=== PATIENT | female | born 1985 | race Caucasian/White ===

== ENCOUNTER 2021-10-29 14:16 | Outpatient (REF) | payer OTHER, SELFPAY | END 2021-10-29 14:17 | disposition home or self-care (01) | LOC: HO.LAB 14:16 | PROVIDERS: PCP Internal Medicine; Visit Provider Internal Medicine | DX: Z20.822 Contact with and (suspected) exposure to COVID-19 (principal) | CPT/HCPCS: C9803; U0003; U0005 ==

== ENCOUNTER 2024-09-24 10:26 | Emergency (ER) | payer OTHER, SELFPAY ==
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
[2024-09-24 10:33] VITALS: BP 128/78; PULSE 80; O2SAT 99
[2024-09-24 10:59] VITALS: BP 112/55; PULSE 85; RESP 20; TEMP 36.6; O2SAT 96; BMI 31.5
[2024-09-24 11:02] VITALS: BP 112/55; PULSE 85; RESP 20; TEMP 36.6; O2SAT 96
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
[2024-09-24] MEDS: Cyclobenzaprine HCl 5 MG TABLET PO (12:05)
--- NOTE | 2024-09-24 12:05 | PC.NURSE ---
Pt. medicated per JAN. Declines Lidocaine patch at this time.
[2024-09-24] MEDS: Ketorolac Tromethamine 30 MG/ML VIAL IM (12:06)
--- NOTE | 2024-09-24 12:37 | PC.NURSE ---
Pt.'s scans are back and are negative. Per Garfield Alcantar MD, OK for this RN to remove pt.'s c-collar.
[2024-09-24 13:53] VITALS: BP 151/92; PULSE 85; RESP 20; TEMP 36.8; O2SAT 100
== END 2024-09-24 13:53 | disposition home or self-care (01) ==
PROVIDERS: Emergency Provider Emergency Medicine
DX: S39.012A Strain of muscle, fascia and tendon of lower back, initial encounter (principal); R51.9 Headache, unspecified; M54.2 Cervicalgia; V49.49XA Driver injured in collision with other motor vehicles in traffic accident, initial encounter; Y93.89 Activity, other specified; Y92.488 Other paved roadways as the place of occurrence of the external cause; Y99.8 Other external cause status
CPT/HCPCS: 70450; 72100; 72125; 96372; 99284; J1885

== ENCOUNTER 2025-09-13 14:04 | Outpatient (AMB) | payer OTHER, SELFPAY ==
[2025-09-13 14:09] VITALS: BP 100/70; PULSE 108; RESP 16; TEMP 36.5; O2SAT 97; BMI 35.5
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
--- OUTSIDE RECORDS SUMMARY | 2025-09-13 14:53 | XMS_ITS | Clinical Summary ---
Author Organization [facility] it Address [address] [place] [address] Care Team Providers Care Child Protective Investigator Name Role Phone Yari Ramirez MD Primary Care Provider [phone] Surgical History Surgery Date Site/Laterality Comments CERVICAL BIOPSY W/ LOOP ELECTRODE EXCISION 1999 PROCEDURE: CERVIAL LEEP CONE BIOPSY [facility] PATHOLOGY EX ESOPHAGOGASTRODUODENOSCOPY 06/16/16 PROCEDURE: MS ESOPHAGOGASTRODUODENOSCOPY TRANSORAL DIAGNOSTIC; COMMENT: normal, with normal gastric and duodenal bxys; no H. pylori OTHER SURGICAL HISTORY 07/23/2016 PROCEDURE: HYSTEROSCOPY, DIAGNOSTIC OTHER SURGICAL HISTORY 01/28/20 PROCEDURE: HISTORICAL TOTAL HYSTERECTOMY W/O BSO Medical History Medical History Date Comments Unspecified asthma(493.90) DX:Un specified asthma(493.90) Other specified personal his tory presenting hazards to health(V15.89) DX:Other specifie d personal history presenting hazards to health(V15.89) Hemorrhoids DX:Hemorrhoids Muller's palsy DX:Muller's palsy; COMMENT: age 17, left side Family History Medical History Relation Name Comments Other: lupus Maternal Grandmother Other: parents have been well Mother Other: brain tumor Other 1 cousin, d eceased Other: cystic fibrosis Other 2 cousi n Other: hydradenitis Other 3 sister Crohn's disease Sister 1 Relation Name Status Comments Daughter Angeliece Alive Father Alive Maternal Grandmother Mother Alive Other 1 Other 2 Other 3 Sister 1 Sister 2 Alive Sister 3 Alive Son Jag Alive Social History Tobacco Use Types Packs/Day Years Used Date Smoking Tobacco: Every Day Cigarettes Last attempted to quit: 08/14/2005 Smokeless Tobacco: Never Alcohol Use Standard Drinks/Week Comments Yes 0 (1 standard drink = 0.6 oz pur e alcohol) Comments Unknown Sex and Gender Information Value Date Recorded Sex Assigned at Not on file Legal Sex Female 9:43 AM EST Gender Identity Not on file Sexual Orientation Not on file Obstetrics History Last Filed Vital Signs Vital Sign Reading Time Taken Comments Blood Pressure 109/74 08/14/2024 10:36 AM EDT Pulse 72 08/14/2024 10:36 AM EDT Temperature - - Respiratory Rate - - Oxygen Saturation - - Inhaled Oxygen Concentration - - Weight 87.5 kg (193 lb) 08/14/2024 10:36 AM EDT Height 162.6 cm (5' 4 ) 08/14/2024 10:36 AM EDT Body Mass Index 33.13 08/14/2024 10:36 AM EDT Plan of Treatment Health Maintenance Due Date Last Done Comments Hepatitis B Vaccines (1 of 3 - 19+ 3-dose series) 2005 Pneumococcal Vaccine: Pediatrics (0 to 5 Years) and At-Risk Patients (6 to 49 Years) (1 of 2 - PCV) 2005 DTaP,Tdap,and Td Vaccines (2 - Td or Tdap) 08/27/2020 08/27/2010 Hepatitis C Screening 10/17/2022 Social Influencers of Health Screening 10/17/2022 Depression Screening 11/14/2024 COVID-19 Vaccine ( - 2023-2 5 season) 2025 Influenza Vaccine (#1) 2025 RSV Immunization Adult Patients (1 - 1-dose 75+ series) 2061 HPV Vaccines Completed 08/15/2008, 04/01/2008, 02/08/2008 HIV Screening Completed 08/14/2024 HIB Vaccines Aged Out No longer eligi ble based on patient's age to complete this topic Hepatitis A Vaccines Aged Out No long er eligible based on patient's age to complete this topic IPV Vaccines Aged Out No longer eligi ble based on patient's age to complete this topic MMR Vaccines Aged Out No longer eligi ble based on patient's age to complete this topic Meningococcal ACWY Vaccine Aged Out N o longer eligible based on patient's age to complete this topic Meningococcal B Vaccine Aged Out No l onger eligible based on patient's age to complete this topic RSV Immunization Patients Under 20 months Aged Out No longer eligible b ased on patient's age to complete this topic Varicella Vaccines Aged Out No longer eligible based on patient's age to complete this topic Care Teams Child Protective Investigator Relationship Specialty Start Date End Date Yari Ramirez MD [address] [place] [address] PCP - General Internal Medicine 08/14/11
--- OUTSIDE RECORDS SUMMARY | 2025-09-13 14:53 | XMS_ITS | Data Portability ---
Author Organization [facility], [address] Address [address] [place] [address] Assessment No assessment recorded. Plan of Treatment Reminders Order Date Submit Date Provider Last Modified By Organization Details Last Modified Time Details Appointments None recorded . Lab None recorded . Referral orthoped ic surgeon referral 2022 023 [facility] (Pe[facility] Goss), [address] [place], [address], 3 09:30:22 Procedures None recorded . Surgeries None recorded . Imaging None recorded . Medication Orders cephalex in 500 mg capsule 2022 023 [id number], [address] [place], [address], 4 08:13:15 Patient TargetsNo targets recorded. Patient Instructions Encounter Date Encounter Id Patient Instructions Last Modified By Organization Details Last Modified Time 05/23/2023 [id number] ganglion cyst education [email or web address] Not available 05/23/2023 09:15:45 ganglions: care instructions [email or web address] Not available 05/23/2023 09:15:45 cellulitis: care instructions [email or web address] Not available 05/23/2023 09:15:45 Wear the wrist splint as instructed. Take the antibiotic as prescribed. Take an over the counter probiotic daily while taking the antibiotic. See printed instructions. A referral to orthopedics has been made for you, call for an appointment as soon as possible. It is unclear if the redness of the back of your left hand is due to inflammation or infection. You are being treated with an antibiotic for possible infection. Over the counter tylenol may be taken per package instructions for pain. Since you have a history of ulcers you should avoid ibuprofen and related medication. Return to [email or web address] in 2 days for re-evaluation. Seek Emergency Medical evaluation for any worsening symptoms, particularly for increased pain, swelling, redness, fever, chills. [email or web address] Not available 05/23/2023 09:19:24 Reason for Referral Orthopedic Surgeon Referral for Ganglion cyst of left wrist Painful left wrist ganglion cyst Referring Physician: Senait Wilkins, Urgent Care, Encounter Date: 05/23/2023 Problems No Known Problems Procedures Surgical History Date Name Laterality Status Provider Name and Address Organization Details Recorded Time hysterectomy completed LESVIA ULI PA - [facility] 05/23/2023 08:48:06 tonsillectomy completed L[facility]IA LUI [facility] - [facility] 05/23/2023 08:48:25 Imaging Results None recorded. Procedure Notes None recorded. Medical Equipment None Reported. Allergies No known drug allergies Medications Name Sig Start Date Stop Date Status Note LastModified by Organization Details LastModified Time cephalexin 500 mg capsule Take 1 capsule 3 times a day by oral route for 7 days. 02/28 completed Not Available Not Available Not Available Vitals Date Recorded Body height Body mass index (BMI) Body weight Oxygen saturation Oxygen saturation in Arterial blood by Pulse oximetry Heart rate Respiratory rate Body temperature Systolic And Diastolic Provider Name and Address Organization Details Last Updated DateTime 4 162.56 cm 32.6 kg/m2 83453.5 5 g 99 % 99 % 85 /min 18 /min 98 [degF] 117/84 mm[Hg] Luba Rojas PA - [email or web address] 4 08:17:33 Date Recorded Body height Body mass index (BMI) Body weight Oxygen saturation Oxygen saturation in Arterial blood by Pulse oximetry Heart rate Respiratory rate Body temperature Systolic And Diastolic Provider Name and Address Organization Details Last Updated DateTime 3 162.56 cm 32.6 kg/m2 54270.5 5 g 97 % 97 % 85 /min 16 /min 97.6 [degF] 115/81 mm[Hg] LESVIA LUI PA - [facility] 3 08:50:00 Social History Question Answer Notes LastModified by Organizat ion Details LastModified Time Tobacco Smoking Status Current Every Day Smoker [facility] Ness - [facility] 02/29/2024 08:16:04 How Much Tobacco Do You Smoke? 0.5 PPD Information not available 02/29/2024 Sex: Unknown Functional Status Question Answer Note LastModified by Organizat ion Details LastModified Time How many times per week do you consume alcohol? 1-2 times per week [email or web address] Information not available 05/23/2023 Do you use any illicit or recreational drugs? No Information not available 05/23/2023 Do you or have you ever used any other forms of tobacco or nicotine? No Information not available 02/29/2024 What is your level of alcohol consumption? Occasional [email or web address] Information not available 05/23/2023 Mental Status None recorded. Family History Nothing Reported. Medical History Condition Response Gout N Cancer, liver N Thyroid disorder N Hyperthyroidism N Rheumatoid arthritis N GI bleeding N Irritable bowel syndrome N Depression N COPD N Tinnitus, unspecified ear N Pneumonia N Cancer, uterus N Mental disorder, NOS N Headaches/Migraines N Insomia N Alzheimer's disease N Anxiety Disorder N Obesity N Arthritis N Cancer N Stroke N Alcohol abuse N Liver disease N Cancer, bladder N Allergy Food/Medication N Peripheral artery disease N Oxygen dependence N Fibromyalgia N Atrial fibrillation N Tinnitus, right ear N Kidney Disease N Deep vein thrombosis DVT leg N Migraine N Disorder of circulatory system N Anxiety N Cancer, brain N Disease of pancreas N Cancer, lung N Eating disorder, unspecified N Cancer, colon N Crohn's disease N Cancer, cervical N N Cancer, breast N Cancer, skin N Coagulation defect, unspecified N Cataract N Asthma Y Congestive heart failure (CHF) N Substance Abuse N Vertigo N Coronary artery disease N Pulmonary Embolism N Cancer, pancreas N Tobacco use disorder N Disease of lung N Allergic rhinitis N Joint disorder, unspecified N Menopause N Drug dependence, unspecified N Back disorder N Hypothyroidism N Disorder kidney N Sickle Cell Anemia N Cancer, ovarian N Muller's Palsy N Disorder of eye N Cancer, prostate N Allergy Seasonal N Drug abuse N Disorder of urinary system N Disorder of lymph system N Radiculopathy, site unspecified N Myoneural disorder, unspecified N Nervous system disorder N ADHD N High Cholesterol N Post-herpetic neuralgia N Aneurysm, cerebral N Tinnitus, left ear N Prostate hypertrophy, benign N Disorder of skin/subcutaneous N Osteoarthritis N Disorder of ear N Ovarian cysts N Parkinson's disease N Low back pain N Carpal tunnel syndrome N Disorder of muscle N Anemia N Kidney stone N Bipolar affective disorder N Leukemia, unspecified N Diabetes N Endocrine disorder N Disorder involving the immune mechanism N Seizure N Hyperlipidemia N Lymphoma N Emphysema, unspecified N Eczema N Diverticulitis N Dementia N Lupus N Seizure disorder N Reflux/GERD N Sleep Apnea N Cancer, bone N Disorder of thyroid N Cardiac arrhythmia, unspecified N Disorder of bone N Heart Disease N Liver Disorder N Disorder of brain N Hypertension N Aneurysm, aortic N Osteoporosis N Gastroesophageal reflux (GERD) N Disease of digestive system, unspecified N Gynecological History Statement/Question Response Is there any chance of ? No Obstetrics History GPAL:G 0 P 0 0 0 0 Past Encounters Encounter ID Performer Location Encounter Start Date Encounter Closed Date Diagnosis/Indication Diagnosis SNOMED-CT Code Diagnosis ICD10 Code Diagnosis IMO Codes Diagnosis Note [id number] [address] [address] [address] 10/24/2018 08:15:21 10/24/2018 09:06:[id number] [place] [address] [address] [address] 05/11/2019 14:55:05 05/11/2019 15:41:09 [id number] [address] [address] [address] 10/16/2018 16:37:37 10/16/2018 17:48:06 [id number] [facility] [address] [address] [place] [address] 10/13/2018 09:02:40 10/13/2018 10:06:22 [id number] [address] [address] [address] 09/18/2019 08:50:00 09/18/2019 10:07:40 [id number] Senait Wilkins MD [address] [place] [address] 05/23/2023 08:12:42 05/23/2023 09:30:22 Ganglion cyst of left wrist [id number] 53463 M67.432 Cellulitis of skin 54377 1002 L03.90 [id number] FLORIDALMA VILLAVICENCIO, TIMO [address] [address] 02/29/2024 08:09:51 02/29/2024 08:28:39 Fit to return to work [id number] Z78.9 Accidental fall [id number] 2 W19.XXXD Health Concerns Section Related Observation LastModified by Organization Detai ls LastModified Time None Recorded Concern Status LastModified by Organization Details LastModified Time None Recorded Advance Directives Directive None Recorded Payers Insurance Date Sequence Insurance Name Policy Number Policy Amador Covered Member ID Amador Member ID Guarantor Name 02/29/2024 1 [facility] PLAN - [employer] (MEDICAID REPLACEMENT - HMO) [employer] Myrtle A Weeks [id number] Myrtle A Weeks Notes Date Note Type Note Provider Name and Address Organization Details Recorded Time 3 text/html Wrist/Hand Injury UCReported by PatientHPIFor associated symptoms, patient reportsswelling,redness, andwarmthbut reportsno ecchymosisandno fever. For source of patient information, patient reportspatient arrived at urgent care ambulatoryandpatient. For location, patient reportsleft,hand, andwrist. For severity, patient reportsmoderate. For duration, patient reports2 days. For aggravating factors, patient reportsrom(palpation.). For previous treatment, patient reportsnone. For prior imaging, patient reportsnone. For context, (slept on hand.). For assistive devices, (none.). For previous injury, (no trauma. 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 She accidentally slept on the hand 2 days ago and the pain and swelling has worsened. She has also noted some redness and warmth over the site and is concernted that the cyst popped .No red streaking, fever or chills. 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 She has never seen an orthopedist or hand surgeon for the ganglion cyst. Senait Wilkins MD [address] [place], [address], PA - [facility] 05/23/2023 09:30:15 4 text/html FallReported by Patient Pt states that she had a fall , ground level fall in her house yesterday, bumped head and would like to return to work today.no nausea or vomiting, no neck pain , no change in vision and denies any other neurological symptoms. FLORIDALMA VILLAVICENCIO NP [address] [place], [address], PA - [facility] 02/29/2024 08:29:37 OBGyn Episode No OBEpisode recorded.
== END 2025-09-13 14:49 | disposition home or self-care (01) ==
PROVIDERS: Visit Provider Physician Assistant
DX: R29.810 Facial weakness (principal); H92.01 Otalgia, right ear

== ENCOUNTER → 2025-09-13 14:04 | Outpatient (BNVA) | payer OTHER, SELFPAY | DX: H92.01 Otalgia, right ear (principal); R29.810 Facial weakness | CPT/HCPCS: 99212 ==

== ENCOUNTER 2025-09-13 14:56 | Emergency (ER) | payer OTHER, SELFPAY ==
--- NOTE | ~2025-09-13 | CT_ITS ---
CLINICAL HISTORY: right facial droop after chiropractic manipulation CT head without contrast. CT angiography head with IV contrast. 3-D postprocessing Comparison: CT - CT ANGIO HEAD NECK - 09/13/25 16:[address]/SR - CT HEAD WITHOUT IV CONTRAST - 09/24/24 11:21 EST Findings: CT head showed no space-occupying lesion. No midline shift or mass-effect. Ventricles and sulci are age appropriate. Calvarium intact. Imaged portion of the paranasal sinuses are clear. No mastoid effusions. Angiographic images of the head: The terminal portion of both internal carotid arteries are patent. The anterior and middle cerebral arteries are patent along their proximal aspects. Posteriorly within the head, the intradural vertebral arteries, basilar artery and marine equipment engineer are patent. No aneurysm or arteriovenous shunting lesion is appreciated. Impression: 1. Wide patency of the intracranial arterial circulation. 2. No intracranial aneurysm or AVM. 3. Unremarkable CT enhancement of the brain parenchyma. CT angiography neck with contrast. 3-D postprocessing Comparison: CT - CT ANGIO HEAD NECK - 09/13/25 16:[address]/SR - CT HEAD WITHOUT IV CONTRAST - 09/24/24 11:21 EST Findings: Angiographic images of the neck: The bilateral common carotid arteries are patent. Both carotid bulbs are widely patent. Both ICAs follow normal course and caliber through their distal cervical segments. Posteriorly within the neck, the vertebral arteries are codominant with patent origins. Both vessels follow normal course and caliber through their suboccipital segments. Imaged portion of sara paranasal sinuses are clear. No mastoid effusions. Adenoids are not enlarged. Normal Fossa of Rosenmuller. Epiglottis and palatine tonsils are not enlarged. No subglottic masses. Normal thyroid gland. Osseous structures intact. Centrilobular emphysema Impression: 1. There is no stenosis of the right common carotid artery bifurcation and proximal right internal carotid artery based on NASCET criteria. 2. There is no stenosis of the left common carotid artery bifurcation and proximal left internal carotid artery based on NASCET criteria. 3. Wide patency of the cervical vertebral arteries. 4. Degenerative spondylosis mid cervical spine correlate with MRI or a dedicated CT cervical spine This document has been electronically signed by: Wilder Chacon MD on 09/13/2025 18:11:45
[2025-09-13 14:59] VITALS: BP 118/71; PULSE 96; RESP 16; TEMP 36.4; O2SAT 97; BMI 35.5
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
[2025-09-13 15:48] LABS: MANUAL DIFF FLAG NO
[2025-09-13 15:49] LABS: Hematocrit 43.2 % (37.0-47.0); Hemoglobin 13.9 g/dl (12.0-16.0); Imm Gran Abs Auto 0.01 X10*3/uL (0.00-0.03); Imm Gran Pct Auto 0.2 % (0.0-0.4); Lymphocytes Absolute Auto 2.1 X10*3/uL (1.2-4.9); Mean Corpuscular HGB Conc 32.2 g/dl (31.0-35.0); Mean Corpuscular Hemoglobin 28.2 pg (27.0-33.0); Mean Corpuscular Volume 87.6 fL (80.0-98.0); NRBC Abs Auto 0.000 X10*3/uL (0.0-0.012); NRBC Pct Auto 0.0 /100WBC (0.0-0.2); Platelet Count 210 X10*3/uL (160-400); Red Blood Count 4.93 X10*6/uL (4.20-5.50); White Blood Count 6.4 X10*3/uL (4.8-10.8)
[2025-09-13 16:05] VITALS: BP 110/60; PULSE 71; RESP 13; TEMP 36.4; O2SAT 97
[2025-09-13 16:09] LABS: Alanine Aminotransferase 17 U/L (0-31); Albumin Level 3.9 g/dL (3.5-5.0); Alkaline Phosphatase 62 U/L (39-117); Anion Gap 8 (12-20); Aspartate Amino Transferase 14 U/L (5-31); Blood Urea Nitrogen 15 mg/dL (9-16); Calcium 8.5 mg/dL (8.4-10.2); Carbon Dioxide 29 mmol/L (22-29); Chloride 107 mmol/L (96-108); Creatinine Clr Calc Pharmacy 123.3; Estimated Glomerular Filt Rate > 60; Magnesium 2.1 mg/dL (1.6-2.6); Potassium 3.9 mmol/L (3.3-5.1); Sodium 140 mmol/L (135-145); Total Protein 6.6 g/dL (6.5-8.0)
[2025-09-13] MEDS: iohexoL 350 MG/ML 100 ML INFUS..BTL IV (16:54)
[2025-09-13 18:49] VITALS: BP 110/60; PULSE 71; RESP 13; TEMP 36.4; O2SAT 97
[2025-09-14 08:23] LABS: Lyme Abs Screen <0.90 index
== END 2025-09-13 18:54 | disposition home or self-care (01) ==
PROVIDERS: Physician Assistant Medical; Emergency Provider Emergency Medicine
DX: G51.0 Bell's palsy (principal)
CPT/HCPCS: 36415; 70496; 70498; 80053; 83735; 84702; 85025; 86140; 86617; 86618; 96365; 96375; 99284; J0131; J1885; Q9967

== ENCOUNTER → 2025-09-13 15:12 | Outpatient (BNV) | payer OTHER, SELFPAY | PROVIDERS: Emergency Provider Emergency Medicine; Visit Provider Radiology Diagnostic Radiology | DX: R29.810 Facial weakness (principal) | CPT/HCPCS: 70496; 70498 ==